=== PATIENT | female | born 1960 | race Caucasian/White ===

== ENCOUNTER 2017-02-25 13:04 | Emergency (ER) | payer BC ==
[2017-02-25] MEDS: ACETAMINOPHEN 325 MG TAB PO (16:32)
== END 2017-02-25 17:58 | disposition home or self-care (01) ==
LOC: FTE 13:04
DX: J10.1 Influenza due to other identified influenza virus with other respiratory manifestations (principal); E11.9 Type 2 diabetes mellitus without complications; I10 Essential (primary) hypertension
CPT/HCPCS: 71045; 87400; 99284-25

== ENCOUNTER 2017-03-23 14:56 | Emergency (ER) | payer BC ==
[2017-03-23] MEDS: ACETAMINOPHEN 500 MG TAB PO (20:00)
== END 2017-03-23 20:17 | disposition home or self-care (01) ==
LOC: FTE 14:56
DX: J06.9 Acute upper respiratory infection, unspecified (principal); I10 Essential (primary) hypertension; E11.9 Type 2 diabetes mellitus without complications; Z79.84 Long term (current) use of oral hypoglycemic drugs
CPT/HCPCS: 99283; Z7502

== ENCOUNTER 2017-12-21 15:28 | Emergency (ER) | payer BC ==
[2017-12-21] MEDS: LIDOCAINE 1% (MDV) 20 ML INJ SC (19:17)
[2017-12-21] MEDS: LIDOCAINE 1% (MPF) 30 ML INJ SC (19:39)
== END 2017-12-21 20:48 | disposition home or self-care (01) ==
LOC: FTE 15:28
DX: L02.416 Cutaneous abscess of left lower limb (principal); I10 Essential (primary) hypertension; E11.9 Type 2 diabetes mellitus without complications; Z79.84 Long term (current) use of oral hypoglycemic drugs
CPT/HCPCS: 10060; 99283-25